=== PATIENT | male | born 1985 | race Hispanic/Latino ===

== ENCOUNTER 2024-04-18 11:59 | Emergency (ER) | payer OTHER ==
[~2024-04-18] VITALS: Ht 167.6 cm; Wt 93.4 kg
[2024-04-18 12:49] VITALS: PULSE 71; RESP 18; TEMP 98.2
[2024-04-18 13:07] VITALS: BP 119/62; PULSE 63; RESP 18; TEMP 98.3; O2SAT 99
== END 2024-04-18 12:39 | disposition home or self-care (01) ==
LOC: FSED 12:07
DX: H10.9 Unspecified conjunctivitis (principal); R03.0 Elevated blood-pressure reading, without diagnosis of hypertension
CPT/HCPCS: 99282